=== PATIENT | female | born 1955 | race Caucasian/White ===

== ENCOUNTER → 2016-12-19 | Outpatient (CLI) | payer BC ==
--- NOTE | 2016-12-21 09:22 | MM ---
Reason for exam: screening (asymptomatic). Last mammogram was performed 2 years and 7 months ago. History: Patient is postmenopausal. Took hormonal contraceptives for 7 years beginning at age 19. Physical Findings: A clinical breast exam by your physician is recommended on an annual basis and results should be correlated with mammographic findings. MG Screening Mammo w CAD Bilateral CC and MLO view(s) were taken. Prior study comparison: May 20, 2014, bilateral MG screening mammo w CAD. December 30, 2011, CAD bilateral diagnostic mammogram. The breast tissue is heterogeneously dense. This may lower the sensitivity of mammography. No suspicious abnormality. Stable right upper outer quadrant focal asymmetry dating back to 05/06/11. No significant changes when compared with prior studies. ASSESSMENT: Benign, BI-RAD 2 RECOMMENDATION: Routine screening mammogram of both breasts in 1 year.
== END | disposition home or self-care (01) ==
LOC: RADMAMWWP 16:46
PROVIDERS: ATTEND Family Medicine
DX: Z12.31 Encounter for screening mammogram for malignant neoplasm of breast (principal)

== ENCOUNTER → 2019-04-03 | Outpatient (CLI) | payer BC ==
--- NOTE | 2019-04-05 10:24 | MM ---
Reason for exam: screening (asymptomatic). Last mammogram was performed 2 years and 3 months ago. History: Patient is postmenopausal. Took hormonal contraceptives for 7 years beginning at age 19. Physical Findings: A clinical breast exam by your physician is recommended on an annual basis and results should be correlated with mammographic findings. MG 3D Screening Mammo W/Cad Bilateral CC and MLO view(s) were taken. Prior study comparison: December 19, 2016, bilateral MG screening mammo w CAD. May 20, 2014, bilateral MG screening mammo w CAD. The breast tissue is heterogeneously dense. This may lower the sensitivity of mammography. No significant changes when compared with prior studies. ASSESSMENT: Negative, BI-RAD 1 RECOMMENDATION: Routine screening mammogram of both breasts in 1 year.
== END ==
LOC: RADMAMWWP 16:35
PROVIDERS: ATTEND Family Medicine
DX: Z12.31 Encounter for screening mammogram for malignant neoplasm of breast (principal)
CPT/HCPCS: 77063; 77067

== ENCOUNTER → 2021-04-15 | Outpatient (CLI) | payer BC ==
--- NOTE | 2021-04-16 10:57 | MM ---
Reason for exam: screening (asymptomatic). Last mammogram was performed 2 years ago. History: Patient is postmenopausal. Took hormonal contraceptives for 7 years beginning at age 19. Physical Findings: A clinical breast exam by your physician is recommended on an annual basis and results should be correlated with mammographic findings. MG 3D Screening Mammo W/Cad Bilateral CC and MLO view(s) were taken. Prior study comparison: April 03, 2019, bilateral MG 3d screening mammo w/cad. December 19, 2016, bilateral MG screening mammo w CAD. The breast tissue is heterogeneously dense. This may lower the sensitivity of mammography. No significant changes when compared with prior studies. ASSESSMENT: Benign, BI-RAD 2 RECOMMENDATION: Routine screening mammogram of both breasts in 1 year.
== END | disposition home or self-care (01) ==
LOC: RADMAMWWP 16:12
PROVIDERS: ATTEND Family Medicine
DX: Z12.31 Encounter for screening mammogram for malignant neoplasm of breast (principal); Z78.0 Asymptomatic menopausal state
CPT/HCPCS: 77063; 77067

== ENCOUNTER → 2022-04-18 | Outpatient (CLI) | payer BC ==
--- NOTE | 2022-04-19 09:03 | MM ---
Reason for Exam: Screening (asymptomatic). Last screening mammogram was performed 12 month(s) ago. Patient History: Menarche at age 14. First Full-Term at age 19. Postmenopausal. Hormonal Contraceptives, starting at age 19 for 7 years. Risk Values: Maris 5 year model risk: 1.4%. NCI Lifetime model risk: 4.8%. Prior Study Comparison: 12/19/2016 Bilateral Screening Mammogram, [facility]. 04/03/2019 Bilateral Screening Mammogram, [facility]. 04/15/2021 Bilateral Screening Mammogram, [facility]. Tissue Density: The breast tissue is heterogeneously dense. This may lower the sensitivity of mammography. Findings: Analyzed By CAD. There is no suspicious group of microcalcifications or new suspicious mass in either breast. Benign calcifications within both breasts. Overall Assessment: Benign, BI-RAD 2 Management: Screening Mammogram of both breasts in 1 year. A clinical breast exam by your physician is recommended on an annual basis and results should be correlated with mammographic findings. Electronically signed and approved by: Catalino Robb D.O.
== END | disposition home or self-care (01) ==
LOC: RADMAMWWP 16:29
PROVIDERS: ATTEND Family Medicine
DX: Z12.31 Encounter for screening mammogram for malignant neoplasm of breast (principal); Z78.0 Asymptomatic menopausal state
CPT/HCPCS: 77063; 77067

== ENCOUNTER → 2022-08-05 | Outpatient (CLI) | payer BC ==
[2022-08-05 15:51] LABS: African American GFR (CKD) >90 (>60 ml/min/1.73 sqM); Blood Urea Nitrogen 13 mg/dL (7-17); Non-African American GFR(CKD) >90 (>60 ml/min/1.73 sqM)
--- NOTE | 2022-08-05 21:05 | CT ---
EXAMINATION TYPE: CT abdomen pelvis w con CT DLP: 693 mGycm, Automated exposure control for dose reduction was used. DATE OF EXAM: 08/05/2022 4:51 PM COMPARISON: CT abdomen pelvis most recent from 09/12/2014. CLINICAL INDICATION:Female, 66 years old with history of R63.4 Abn weight loss R79.89 Elevated LFT's R05.9; Abnormal weight loss. 18-20lbs x6mo. TECHNIQUE: Axial CT of the abdomen and pelvis. Sagittal and coronal reformats were created on a [employer] workstation. Contrast used:100cc mL of Isovue 300 with IV Contrast, Oral contrast used: with Oral Contrast FINDINGS: LOWER CHEST: Unremarkable ABDOMEN LIVER: No evidence of suspicious mass. Mild central intrahepatic biliary dilation. GALLBLADDER AND BILE DUCTS: Gallbladder is surgically absent with mild intrahepatic and extra hepatic biliary dilatation likely physiologic and a postcholecystectomy change. No evidence of choledocholit hiasis. No definitive evidence for filling defect to suggest choledocholithiasis. Findings are simila r to 2015. PANCREAS: Unremarkable. SPLEEN: Unremarkable. ADRENAL GLANDS: Unremarkable. KIDNEYS AND URETERS: No evidence of hydronephrosis or renal calculus. The ureters are unremarkable. Right renal cyst. PELVIS BLADDER: Unremarkable REPRODUCTIVE: Atrophic appearing uterus. ABDOMEN & PELVIS STOMACH AND BOWEL: No evidence of bowel obstruction. Scattered colonic diverticula. PERITONEUM/RETROPERITONEUM: No evidence of pneumoperitoneum or free fluid. VASCULATURE: Mild atherosclerotic calcifications are present throughout the abdominal aorta and its b ranches. No evidence of aortic aneurysm. MUSCULOSKELETAL: No acute osseous abnormalities, degeneration worse at L2-L3 with posterior disc oste ophyte at least moderate spinal canal stenosis. The neural foramen appear patent. LYMPH NODES: Left upper quadrant prominent lymph nodes are seen dating back to 2014. SOFT TISSUE/ABDOMINAL WALL: Unremarkable IMPRESSION: 1. No evidence for hepatic mass. There is mild central biliary dilation which can be seen in setting of postcholecystectomy physiology. No evidence for lymphadenopathy or abdominal mass. 2. No acute abdominal process. 3. Colonic diverticulosis. 4. Degeneration changes with at least moderate spinal canal stenosis at L2-L3.
--- NOTE | 2022-08-06 06:19 | CT ---
EXAMINATION TYPE: CT chest wo con DATE OF EXAM: 08/05/2022 COMPARISON: NONE HISTORY: Abnormal weight loss. 18-20lbs x6mo. CT DLP: 259 mGycm. Automated Exposure Control for Dose Reduction was Utilized. TECHNIQUE: CT scan of the thorax is performed without IV contrast. FINDINGS: LUNGS: Mild to moderate underlying emphysematous change with mild bibasilar linear scarring and/or at electasis. Mild central bronchiectasis with mild peribronchial wall thickening in the areas of ground glass opacity. No greater than 5 mm pulmonary nodules. No pleural effusion or pneumothorax. Some cent ral opacity suspected mucous plugging left lower lobe bronchus axial image 28. MEDIASTINUM: Lack of IV contrast is noted to limit evaluation for mediastinal and especially hilar ad enopathy. There are no definitive greater than 1 cm mediastinal lymph nodes. No cardiomegaly or per icardial effusion is seen. Absent or atrophic thyroid gland. OTHER: Please refer to same day CT abdomen report for complete details on the upper abdomen. Scolioti c curvature or positioning. IMPRESSION: 1. Mild to moderate underlying emphysematous change with findings suggesting underlying chronic bronc hitis and/or bronchiolitis. Correlate clinically. No suspicious nodules or thoracic adenopathy.
== END | disposition home or self-care (01) ==
LOC: RADCTMAIN 14:49
PROVIDERS: ATTEND Family Medicine
DX: J43.9 Emphysema, unspecified (principal); K57.30 Diverticulosis of large intestine without perforation or abscess without bleeding; R79.89 Other specified abnormal findings of blood chemistry; R63.4 Abnormal weight loss; M48.061 Spinal stenosis, lumbar region without neurogenic claudication; M47.816 Spondylosis without myelopathy or radiculopathy, lumbar region
CPT/HCPCS: 82565; 84520; 71250; 74177; 36415; Q9967

== ENCOUNTER → 2022-10-19 | Outpatient (CLI) | payer BC ==
[2022-10-19 16:41] LABS: Basophils # (A) 0.05 X 10*3/uL (0.00-0.10); Basophils % (A) 0.9 %; Eosinophils # (A) 0.09 X 10*3/uL (0.04-0.35); Eosinophils % (A) 1.5 %; Lymphocytes % (A) 34.1 %; MCHC 31.7 d/dL (32.0-37.0); MCV 94.7 FL (80.0-97.0); Mean Platelet Volume 10.7 FL (9.5-12.2); Monocytes # (A) 0.66 X 10*3/uL (0.20-1.00); Monocytes % (A) 11.3 %; NRBC Per 100 WBC 0 X 10*3/uL (0.00-0.01); Neutrophils # (A) 3.05 X 10*3/uL (1.80-7.70); Platelet Count 314 X 10*3/uL (140-440); RBC 4.33 X 10*6/uL (4.10-5.20); WBC 5.86 X 10*3/uL (4.50-10.00)
[2022-10-19 16:54] LABS: ALT 34 U/L (8-44); AST 40 U/L (13-35); Albumin 4.2 d/dL (3.8-4.9); Alkaline Phosphatase 122 U/L (41-126); Blood Urea Nitrogen 11.8 mg/dL (9.0-27.0); Calcium 9.6 mg/dL (8.7-10.3); Carbon Dioxide 27.1 mmol/L (21.6-31.8); Chloride 105 mmol/L (96-109); Globulin 2.8 d/dL (1.6-3.3); Glucose 76 mg/dL (70-110); Sodium 140 mmol/L (135-145); Total Bilirubin <0.2 mg/dL (0.3-1.2)
== END | disposition home or self-care (01) ==
LOC: LABWHC1 11:00
PROVIDERS: ATTEND Internal Medicine Gastroenterology
DX: R74.01 Elevation of levels of liver transaminase levels (principal)
CPT/HCPCS: 36415; 80053; 85025

== ENCOUNTER 2022-10-21 08:48 | Day surgery (SDC) | payer BC ==
[2022-10-14 11:46] VITALS: BMI 17.4
[~2022-10-21 08:48] MED LIST: LACTATED RINGERS 1,000 ML IV SCH; LIDOCAINE 1% (10MG/ML) FOR IV START INTRADERMA PRN; ONDANSETRON 4 MG/2 ML VIAL IVP PRN
[2022-10-21 09:14] VITALS: TEMP 96.9
[2022-10-21] MEDS ORDERED: LIDOCAINE 2% INJ 20 MG/ML (2 ML VIAL) ONE (09:27)
[2022-10-21] MEDS ORDERED: PROPOFOL 10 MG/ML 20 ML VIAL IV ONE (09:27)
--- NOTE | 2022-10-21 09:45 | P.PCN ---
Date of Procedure: 10/21/22 Procedure(s) Performed: Brief history: Patient is a pleasant 67-year-old white female scheduled for an elective upper endoscopy as well as colonoscopy as a part of evaluation of GERD/right upper quadrant abdominal pain and change in bowel habits associated with progressive weight loss of almost 15 pounds in the last 3 months duration. Procedure performed: Esophagogastroduodenoscopy with biopsy Colonoscopy Preoperative diagnosis: Right upper quadrant abdominal pain/GERD Change in bowel habits and progressive weight loss Anesthesia: MAC Procedure: After informed consent was obtained from the patient was brought into the endoscopy unit and IV sedation was administered by anesthesia under continuous monitoring. Initially upper endoscopy was done. The Olympus GF 160 video endoscope was inserted inserted into the mouth and esophagus intubated without any difficulty and was gradually advanced into the stomach and duodenum and carefully examined. The bulb and second part of the duodenum had decreased in the mucosal folds and somewhat atrophic appearing mucosa suspicious for celiac disease and hence multiple biopsies were done from this area.. The scope was then withdrawn into the stomach adequately insufflated with air and upon careful examination the antrum had linear areas of erythema consistent with gastritis and biopsies were done from this area. Mucosa of the body, cardia and fundus appeared normal. The scope was then withdrawn into the esophagus. The GE junction was located at 40 cm to the incisors. It appeared regular with no erythema erosions or ulcerations. Rest of the esophagus appeared normal. Patient tolerated the procedure well. At this time the patient continued to remain sedation. Initial digital rectal examination was normal. Olympus CF 160 video colonoscope was then inserted into the rectum and gradually advanced to the cecum without any difficulty. Careful examination was performed as the scope was gradually being withdrawn. The prep was excellent. The cecum, ascending colon, transverse colon, descending colon, sigmoid colon and rectum appeared normal. Retroflexion was performed in the rectum and no lesions were noted. Patient tolerated the procedure well. Impression: 1. Upper endoscopy revealed decreased duodenal folds with somewhat atrophic appearing mucosa suspicious for celiac disease status post multiple biopsies and mild antral gastritis 2. colonoscopy was within normal limits with no evidence of colorectal neoplasia Recommendations: Findings of this examination were discussed with the patient as well as her family. She was advised to follow with the biopsy results. follow up in office in 2 weeks. Recommend repeat screening colonoscopy in 10 years. Will obtain celiac panel today.
[2022-10-21 10:01] VITALS: RESP 16
[2022-10-21 10:12] VITALS: BP 117/72; PULSE 68
[2022-10-21 19:41] LABS: Gliadin AB IgA, Deaminated POSITIVE; Gliadin AB IgA, Unit >250.0 U/mL; Gliadin AB IgG, Deaminated POSITIVE; Gliadin AB IgG, Unit 147.8 U/mL
== END 2022-10-21 10:46 | disposition home or self-care (01) ==
LOC: ORWHC2ENDO 08:48
PROVIDERS: ATTEND Internal Medicine Gastroenterology
DX: D72.820 Lymphocytosis (symptomatic) (principal); K29.50 Unspecified chronic gastritis without bleeding; K21.9 Gastro-esophageal reflux disease without esophagitis; E03.9 Hypothyroidism, unspecified; Z79.899 Other long term (current) drug therapy
CPT/HCPCS: 88305; 88342; 83516 ×4; 45378; 43239; J2704; J2001

== ENCOUNTER → 2023-01-24 | Outpatient (CLI) | payer BC ==
[2023-01-24 15:48] LABS: ALT 23 U/L (8-44); AST 25 U/L (13-35); Albumin 4.3 d/dL (3.8-4.9); Albumin/Globulin Ratio 1.72 Ratio (1.60-3.17); Alkaline Phosphatase 102 U/L (41-126); Calcium 10.5 mg/dL (8.7-10.3); Carbon Dioxide 28.3 mmol/L (21.6-31.8); Chloride 105 mmol/L (96-109); Globulin 2.5 d/dL (1.6-3.3); Glucose 95 mg/dL (70-110); Potassium 5.2 mmol/L (3.5-5.5); Sodium 140 mmol/L (135-145); Total Bilirubin <0.2 mg/dL (0.3-1.2); Total Protein 6.8 d/dL (6.2-8.2)
[2023-01-24 15:58] LABS: Basophils # (A) 0.06 X 10*3/uL (0.00-0.10); Basophils % (A) 1.1 %; Eosinophils % (A) 3.5 %; HCT 42.6 % (37.2-46.3); HGB 13.8 d/dL (12.0-15.0); Lymphocytes % (A) 42.5 %; MCH 30.1 pg (27.0-32.0); MCHC 32.4 d/dL (32.0-37.0); Mean Platelet Volume 10.2 FL (9.5-12.2); Monocytes # (A) 0.68 X 10*3/uL (0.20-1.00); NRBC Per 100 WBC 0 X 10*3/uL (0.00-0.01); Neutrophils % (A) 40.7 %; Platelet Count 311 X 10*3/uL (140-440); RBC 4.58 X 10*6/uL (4.10-5.20); RDW 12.4 % (11.5-14.5); WBC 5.65 X 10*3/uL (4.50-10.00)
== END | disposition home or self-care (01) ==
LOC: LABWHC1 11:00
PROVIDERS: ATTEND Internal Medicine Gastroenterology
DX: R74.01 Elevation of levels of liver transaminase levels (principal)
CPT/HCPCS: 36415; 80053; 85025

== ENCOUNTER 2023-09-13 09:02 | Day surgery (SDC) | payer BC ==
[~2023-09-13 09:02] MED LIST changes: +HYDROmorphone 0.5 MG/0.5 ML SYRINGE IVP PRN; +droPERidol 5 MG/2 ML VIAL IVP ONE
[2023-09-13] MEDS: IV FLUID CONTINUATION 1,000 ML IV ONE (09:28)
[2023-09-13] MEDS: OXYMETAZOLINE 0.05% NASL SPRAY 1 SPRAY BOTTLE EA NOSTRIL PRN (09:35)
[2023-09-13] MEDS: DEXAMETHASONE SOD PHOSPHATE 4 MG/ML 1 ML VIAL IV ONE (09:58)
[2023-09-13] MEDS: ONDANSETRON 4 MG/2 ML VIAL IVP ONE (09:58)
[2023-09-13] MEDS: FAMOTIDINE 20 MG/2 ML VIAL IV PRN (09:59)
[2023-09-13] MEDS: IPRATROPIUM-ALBUTEROL 3 ML NEB INHALATION STA (10:01)
[2023-09-13] MEDS: BUDESONIDE 1 MG/2 ML NEBU INHALATION STA (10:01)
[2023-09-13] MEDS ORDERED: fentaNYL (PF) 50 MCG/ML 2 ML AMP ONE (10:18)
[2023-09-13] MEDS ORDERED: LIDOCAINE 1% INJ 10MG/ML (20 ML MDV) ONE (10:18)
[2023-09-13] MEDS ORDERED: SUCCINYLCHOLINE CHLORIDE 200 MG/10 ML VIAL IV ONE (10:18)
[2023-09-13] MEDS ORDERED: PROPOFOL 10 MG/ML 20 ML VIAL IV ONE (10:18)
[2023-09-13] MEDS: LIDOCAINE 1%-EPI 1:100,000 20 ML VIAL SQ ONE (10:35)
[2023-09-13] MEDS: BACITRACIN ZINC 500 UNIT/GM OINT 28.4 GM TUBE TOPICAL ONE (10:37)
--- NOTE | 2023-09-13 11:04 | P.OP ---
Date of Procedure: 09/13/23 Preoperative Diagnosis: deviated nasal septum Inferior turbinate hypertrophy Postoperative Diagnosis: same Procedure(s) Performed: septoplasty Inferior turbinoplasty Anesthesia: IRAMA Surgeon: Fahad Puente Estimated Blood Loss (ml): 5 Pathology: other (nasal septal bone and cartilage) Condition: stable Disposition: PACU Indications for Procedure: 67-year-old white female who has difficulties with chronic nasal airway obstruction and congestion bilaterally right greater than left and failed medical management with no improvement particularly with steroid nasal sprays Operative Findings: nasal septum deviated to the right obstructing approximately 80% of the nasal airway in both cartilaginous and bony septum inferior turbinate hypertrophy bilaterally moderate Description of Procedure: DESCRIPTION OF PROCEDURE: The patient was brought to the operative suite, placed in the supine position. The patient underwent induction of general anesthesia with oral endotracheal intubation without difficulty. The patient was prepped and draped in the usual aseptic fashion. 1% lidocaine with 1:100,000 epinephrine was infused submucosally on both sides of the nasal septum. While this was taking vasoconstrictive effect, the inferior turbinates were infractured with a Lantry elevator. Partial submucous resection of the inferior turbinates was performed with Coblation device ablating a portion of the submucosal soft tissue. The inferior turbinates were then outfractured with a Lantry elevator. A left hemitransfixion incision was then made through the mucoperichondrial. Mucoperiosteal flap on the left elevated. Bony cartilaginous junction was disarticulated and mucoperiosteal flap on the right was elevated. Bony nasoseptal deformity were removed with Chanelle forceps and an inferior cartilaginous strip was removed, leaving a full 1.5 cm caudal strut. Checking intranasally, this corrected the nasal septal deformities and the hemitransfixion incision was closed with running 4-0 chromic suture. The bilateral Garcia airway splints coated in bacitracin ointment were placed in the nasal cavities and sutured transseptally with 4-0 nylon suture. The patient was then suctioned in an orogastric fashion. The patient was allowed to emerge from general anesthesia, having tolerated the procedure well and was extubated in the operating suite, transferred to postoperative recovery area in satisfactory condition.
[2023-09-13 11:24] VITALS: TEMP 97
[2023-09-13] MEDS: Acetaminophen-Codeine 300-30mg TAB PO PRN (12:20)
[2023-09-13 12:41] VITALS: BP 119/70; PULSE 75; RESP 16
== END 2023-09-13 12:47 | disposition home or self-care (01) ==
LOC: OR 09:02
PROVIDERS: ATTEND Otolaryngology
DX: J34.2 Deviated nasal septum (principal); J34.3 Hypertrophy of nasal turbinates; E07.9 Disorder of thyroid, unspecified; Z79.890 Hormone replacement therapy; Z90.49 Acquired absence of other specified parts of digestive tract
CPT/HCPCS: 94640; 88300; 30520; 30802; J0330; J1100; J0690; J2405; J2001; J3010; J3490; J2704